=== PATIENT | male | born 1975 ===

== ENCOUNTER 2020-09-16 13:09 | Emergency (ER) | payer MEDICARE, MEDICAID, SELFPAY ==
[2020-09-16 13:19] VITALS: BP 120/83; PULSE 112; RESP 18; TEMP 36.1; O2SAT 94
--- NOTE | 2020-09-16 13:22 | ECG_ITS ---
Measurements Intervals [place] Rate: 111 P: 33 MA: 140 QRS: 24 QRSD: 93 T: 20 QT: 318 QTc: 433 Interpretive Statements SINUS TACHYCARDIA DELAYED PRECORDIAL R/S TRANSITION ABNORMAL ECG Electronically Signed On 09-16-2020 13:30:43 [employer] OPER[employer] by Jonathan Barnes D.O.
[2020-09-16 13:27] VITALS: PULSE 112; O2SAT 94
--- NOTE | 2020-09-16 13:30 | ED.GENADULT ---
HPI - General Adult General Chief complaint: Seizure Stated complaint: SEIZURE Time Seen by Provider: 09/16/20 13:10 Source: patient History of Present Illness HPI narrative: Patient is a 45 y/o complaining of seizure. He states that he a seizure prior to arrival while he was sitting on bed. He is not sure how long it lasted. He was unconscious when he had the seizure. He state that his spouse witnessed the seizure. He is on Keppra for seizure and he states that he has been compliant with his seizure medication. He states that he has chronic bilateral leg pain due to rheumatoid arthritis and fibromyalgia. Related Data Home Medications Medication Instructions Recorded Confirmed alprazolam 09/16/20 atorvastatin 09/16/20 dolutegravir [Tivicay] mg 09/16/20 emtricitabine-tenofovir alafen tablet PO 09/16/20 [Descovy] esomeprazole magnesium mg 09/16/20 eszopiclone mg 09/16/20 folic acid 1 mg PO DAILY 09/16/20 hydroxychloroquine 09/16/20 ibuprofen 09/16/20 lamotrigine 09/16/20 levetiracetam PO 09/16/20 meclizine mg 09/16/20 methocarbamol mg 09/16/20 ondansetron HCl 09/16/20 sumatriptan succinate mg PO 09/16/20 Allergies Allergy/AdvReac Type Severity Reaction Status Date / Time azithromycin Allergy Mild Vomiting, Verified 09/16/20 14:19 SWELLING,DIFFICULTY AMBULATING ketorolac Allergy Mild Loss of Verified 09/16/20 14:19 Consciousness Penicillins Allergy Mild Swelling Verified 09/16/20 14:19 risperidone Allergy Mild Swelling Verified 09/16/20 14:19 Review of Systems Constitutional: Constitutional: Denies chills, Denies fever(s), Denies headache(s) and Denies weakness Eyes: Eyes: Denies blurry vision ENT: Denies headache(s) and Denies neck pain Cardiovascular: Cardiovascular: Denies chest pain and Denies dyspnea Respiratory: Respiratory: Denies cough and Denies dyspnea Gastrointestinal: Gastrointestinal: Denies abdominal pain, Denies diarrhea, Denies nausea and Denies vomiting Genitourinary: Genitourinary: Denies hematuria and Denies dysuria Musculoskeletal: Musculoskeletal: Denies back pain, Denies neck pain and Reports other (bilateral leg pain) Neurologic: Denies headache(s), Reports seizure-like activity and Denies weakness [facility] Past Medical History Medical History Anxiety Asthma Broken heart syndrome Bronchitis Celiac disease Complicated grief Depression Fibromyalgia GERD (gastroesophageal reflux disease) History of bipolar disorder HIV (human immunodeficiency virus infection) HLD (hyperlipidemia) Insomnia Migraines Myocardial infarction Pneumonia PTSD (post-traumatic stress disorder) Rheumatoid arthritis Seizures Surgical History Surgical History H/O inguinal hernia repair H/O sinus surgery History of appendectomy Social History Social History Smoking status: Unknown if ever smoked Gender identity (if verbalized by the patient): Male Exam Const: General: no acute distress and well developed Orientation/consciousness: oriented to person, oriented to place, oriented to time and patient oriented x3 HENMT: Head: normocephalic Ears: external ears normal General nose exam: Normal external nose present Eyes: General: appearance normal, both eyes and all related structures Conjunctivae: conjunctivae normal Neck: Neck: normal visual inspection and full ROM Chest: Chest palpation & inspection: normal inspection of the chest and no tenderness Resp: Effort & Inspection: normal respiratory effort Auscultation: clear to auscultation bilaterally Cardio: Rate: tachycardic Rhythm: regular rhythm GI: GI Palp: No abdominal tenderness and Yes Soft to palpation Skin: General skin exam: normal color and turgor normal Neuro: General: oriented to person, oriented to place, oriented to time and ludy
[2020-09-16 13:47] LABS: Basophils Absolute Auto 0.1 K/mm3 (0.0-0.1); Basophils Percent Auto 0.5 % (0.2-1.2); Eosinophils Absolute Auto 0.1 K/mm3 (0-0.3); Eosinophils Percent Auto 0.9 % (0-4.4); Hematocrit 41.2 % (42.0-52.0); Hemoglobin 13.1 g/dL (14.0-18.0); Immature Granulocyte Absolute 0.08 K/mm3 (0.00-0.031); Immature Granulocyte Percent A 0.7 % (0-0.5); Lymphocytes Absolute Auto 2.69 K/mm3 (0.9-3.2); Lymphocytes Percent Auto 23.1 % (18.3-44.2); Mean Corpuscular HGB Conc 31.8 g/dl (32-36); Mean Corpuscular Hemoglobin 27.8 pg (26-34); Mean Corpuscular Volume 87.3 fl (80-100); Mean Platelet Volume 8.9 fl (7.4-10.4); Monocytes Absolute Auto 0.6 K/mm3 (0.1-0.6); Monocytes Percent Auto 5.1 % (2.6-8.5); Neutrophils Absolute Auto 8.1 K/mm3 (1.3-6.7); Neutrophils Percent Auto 69.7 % (45.5-73.1); Platelet Count Result 455 k/mm3 (150-375); Red Blood Count 4.72 M/mm3 (4.6-6.20); Red Cell Distribution Width 13.8 % (11.5-14.5); White Blood Count 11.6 K/mm3 (4.5-10.0)
[2020-09-16 13:57] LABS: Anion Gap 15 mmol/L (8-16); Blood Urea Nitrogen 14 mg/dL (9-20); Calcium 9.9 mg/dL (8.4-10.2); Carbon Dioxide 20 mmol/L (22-30); Chloride 102 mmol/L (98-107); Estimated CRCL calculation 114 ml/min; Estimated Glomerular Filt Rate > 60; Glucose 138 mg/dL (75-110); Potassium 3.9 mmol/L (3.4-5.0); Sodium 137 mmol/L (137-145)
[2020-09-16 14:46] VITALS: BP 107/70; PULSE 115; RESP 19; O2SAT 93
== END 2020-09-16 16:06 | disposition home or self-care (01) ==
PROVIDERS: Emergency Provider Emergency Medicine
DX: R56.9 Unspecified convulsions (principal); J45.909 Unspecified asthma, uncomplicated; K90.0 Celiac disease; M79.7 Fibromyalgia; K21.9 Gastro-esophageal reflux disease without esophagitis; E78.5 Hyperlipidemia, unspecified; F31.9 Bipolar disorder, unspecified; F41.9 Anxiety disorder, unspecified; F43.10 Post-traumatic stress disorder, unspecified; Z21 Asymptomatic human immunodeficiency virus [HIV] infection status; I25.2 Old myocardial infarction; M06.9 Rheumatoid arthritis, unspecified; R00.0 Tachycardia, unspecified
CPT/HCPCS: 36415; 80048; 85025; 93005; 99283

== ENCOUNTER 2022-06-22 21:36 | Emergency (ER) | payer MEDICARE, MEDICAID, SELFPAY ==
[2022-06-22] VITALS (18 sets, daily range): BP systolic 99–141; BP diastolic 79–90; PULSE 97–118; RESP 17–31; TEMP 36.7; O2SAT 92–98
--- NOTE | ~2022-06-22 | XR_ITS ---
EXAMINATION: XR chest 1V portable DATE: 06/22/2022 22:11 INDICATION: Seizure. Weakness. TECHNIQUE: A single frontal view of the chest was obtained. COMPARISON: Chest 2 views 09/23/2019 FINDINGS: There is no pneumonia, pleural effusion, or pneumothorax. The heart size is normal. There a re prominent paracardial fat pads. IMPRESSION: 1. No acute cardiopulmonary disease. Reviewed, dictated and finalized at location A.
[2022-06-22] MEDS: SODIUM CHLORIDE 0.9% IV 1,000 ML 999 ML IV CONT ×2 (22:00→23:06)
[2022-06-22 22:04] LABS: Basophils Absolute Auto 0.1 K/mm3 (0.0-0.1); Basophils Percent Auto 0.8 % (0.2-1.2); Eosinophils Absolute Auto 0.1 K/mm3 (0-0.3); Eosinophils Percent Auto 0.8 % (0-4.4); Hematocrit 55.9 % (42.0-52.0); Hemoglobin 18.8 g/dL (14.0-18.0); Immature Granulocyte Absolute 0.02 K/mm3 (0.00-0.031); Immature Granulocyte Percent A 0.3 % (0-0.5); Lymphocytes Absolute Auto 2.28 K/mm3 (0.9-3.2); Lymphocytes Percent Auto 29.6 % (18.3-44.2); Mean Corpuscular HGB Conc 33.6 g/dl (32-36); Mean Corpuscular Hemoglobin 31.5 pg (26-34); Mean Corpuscular Volume 93.6 fl (80-100); Mean Platelet Volume 9.8 fl (7.4-10.4); Monocytes Absolute Auto 0.6 K/mm3 (0.1-0.6); Monocytes Percent Auto 8.2 % (2.6-8.5); Neutrophils Absolute Auto 4.7 K/mm3 (1.3-6.7); Neutrophils Percent Auto 60.3 % (45.5-73.1); Platelet Count Result 274 k/mm3 (150-375); Red Blood Count 5.97 M/mm3 (4.6-6.20); Red Cell Distribution Width 12.9 % (11.5-14.5); White Blood Count 7.7 K/mm3 (4.5-10.0)
[2022-06-22 22:18] LABS: Alanine Aminotransferase 36 U/L (6-50); Alkaline Phosphatase 70 U/L (38-126); Anion Gap 9 mmol/L (8-16); Aspartate Amino Transferase 31 U/L (17-59); Bilirubin,Total 0.3 mg/dL (0.2-1.3); Blood Urea Nitrogen 11 mg/dL (9-20); Calcium 9.5 mg/dL (8.4-10.2); Carbon Dioxide 23 mmol/L (22-30); Chloride 108 mmol/L (98-107); Estimated CRCL calculation 69 ml/min; Estimated Glomerular Filt Rate 50; Glucose 106 mg/dL (65-110); Potassium 4.6 mmol/L (3.4-5.0); Sodium 140 mmol/L (137-145)
--- NOTE | 2022-06-22 23:10 | ED.SEIZURE ---
HPI - Seizure General Chief Complaint: Seizure Stated Complaint: SEIZURE Time Seen by Provider: 06/22/22 21:38 History of Present Illness HPI Narrative: Patient is a 47-year-old male who presents to the ER with reports of having a seizure. Reports he had 2. His first seizure lasted a couple minutes and was focal and he could feel his arm moving while he maintained consciousness. He then had a generalized seizure that lasted 30 seconds that was witnessed by his spouse. Patient reports he has been compliant with his home Keppra however he has been under increased stress because he has been unable to sleep for 2 days. He reports he has noisy neighbors that do not allow him to sleep. His last seizure prior to this was 2 years ago. He sees a neurologist at [facility]. He has no complaints of pain or injury. Seizure History: Yes Related Data Home Medications Medication Instructions Recorded Confirmed alprazolam 2 mg tablet 09/16/20 atorvastatin 40 mg tablet 09/16/20 dolutegravir 50 mg tablet (Tivicay) mg 09/16/20 emtricitabine 200 mg-tenofovir tablet PO 09/16/20 alafenamide fumarate 25 mg tablet (Descovy) esomeprazole magnesium 40 mg mg 09/16/20 capsule,delayed release eszopiclone 3 mg tablet mg 09/16/20 folic acid 1 mg tablet 1 mg PO DAILY 09/16/20 hydroxychloroquine 200 mg tablet 09/16/20 ibuprofen 800 mg tablet 09/16/20 lamotrigine 150 mg tablet 09/16/20 levetiracetam 500 mg tablet PO 09/16/20 meclizine 25 mg tablet mg 09/16/20 methocarbamol 750 mg tablet mg 09/16/20 ondansetron HCl 8 mg tablet 09/16/20 sumatriptan succinate 100 mg tablet mg PO 09/16/20 Allergies Allergy/AdvReac Type Severity Reaction Status Date / Time azithromycin Allergy Mild Vomiting, Verified 09/16/20 14:19 SWELLING,DIFFICULTY AMBULATING ketorolac Allergy Mild Loss of Verified 09/16/20 14:19 Consciousness Penicillins Allergy Mild Swelling Verified 09/16/20 14:19 risperidone Allergy Mild Swelling Verified 09/16/20 14:19 Review of Systems Review of Systems: All systems reviewed & are unremarkable except as noted in HPI and below Constitutional: Constitutional: Denies chills, Denies fatigue and Denies fever(s) ENT: Denies nasal congestion and Denies sore throat Cardiovascular: Cardiovascular: Denies chest pain, Denies rapid heart rate and Denies radiating jaw, neck or arm pain Respiratory: Respiratory: Denies cough and Denies dyspnea Gastrointestinal: Gastrointestinal: Denies abdominal pain, Denies nausea and Denies vomiting Neurologic: Denies headache(s), Denies focal weakness and Denies numbness Comments: Seizure PMFSH Past Medical History Medical History Anxiety Asthma Broken heart syndrome Bronchitis Celiac disease Complicated grief Depression Fibromyalgia GERD (gastroesophageal reflux disease) History of bipolar disorder HIV (human immunodeficiency virus infection) HLD (hyperlipidemia) Insomnia Migraines Myocardial infarction Pneumonia PTSD (post-traumatic stress disorder) Rheumatoid arthritis Seizures Surgical History Surgical History H/O inguinal hernia repair H/O sinus surgery History of appendectomy Social History Social History Smoking status: Unknown if ever smoked Gender identity (if verbalized by the patient): Male Exam Narrative: GENERAL: Well-appearing, well-nourished, and in no acute distress. HEAD: Normocephalic, atraumatic. EYES: PERRL and EOMI. ENT: Mucous membranes moist. CHEST: Clear to auscultation. No respiratory distress. HEART: Regular rate and rhythm. Normal peripheral pulses. ABDOMEN: Soft, nontender, nondistended. EXTREMITIES: Normal range of motion. No edema. SKIN: Warm, dry, no rash. NEURO: Alert and oriented x3. PSYCH: Normal mood and affect. Course Course Emerg
[2022-06-23] VITALS: PULSE 106; RESP 22
[2022-06-23 00:01] VITALS: BP 116/85; PULSE 102; RESP 13
[2022-06-23 00:15] VITALS: PULSE 109; RESP 22
[2022-06-23 00:16] VITALS: BP 124/92; PULSE 111; RESP 33
== END 2022-06-23 00:26 | disposition home or self-care (01) ==
PROVIDERS: Emergency Provider Emergency Medicine
DX: G40.909 Epilepsy, unspecified, not intractable, without status epilepticus (principal); E86.0 Dehydration; J45.909 Unspecified asthma, uncomplicated; K90.0 Celiac disease; E78.5 Hyperlipidemia, unspecified; K21.9 Gastro-esophageal reflux disease without esophagitis; M06.9 Rheumatoid arthritis, unspecified; Z21 Asymptomatic human immunodeficiency virus [HIV] infection status; F41.9 Anxiety disorder, unspecified; F31.9 Bipolar disorder, unspecified; F43.10 Post-traumatic stress disorder, unspecified; I25.2 Old myocardial infarction; Z87.01 Personal history of pneumonia (recurrent)
CPT/HCPCS: 36415; 71045; 80053; 85025; 96360; 96361; 99283; J7030